=== PATIENT | female | born 1945 | race Caucasian/White ===

== ENCOUNTER 2025-08-07 10:00 | Outpatient (CLI) | payer OTHER ==
[2025-08-07] MEDS ORDERED: Iopamidol 300 61% 100 ML VIAL FS ONE (14:07)
== END 2025-08-07 10:01 | disposition home or self-care (01) ==
LOC: CSHCT 10:00
PROVIDERS: ATTEND Family Medicine
DX: R10.30 Lower abdominal pain, unspecified (principal); K57.30 Diverticulosis of large intestine without perforation or abscess without bleeding; K76.0 Fatty (change of) liver, not elsewhere classified
CPT/HCPCS: 74177; Q9967